=== PATIENT | male | born 1990 | race Caucasian/White ===

== ENCOUNTER 2020-02-18 13:21 | Emergency (ER) | payer MEDICAID, SELFPAY ==
[2020-02-18 13:30] VITALS: BP 155/97; PULSE 71; TEMP 37.1; O2SAT 98
--- NOTE | 2020-02-18 13:38 | W.ED.GENAD ---
Discharge Plan Disposition Patient Disposition: HOME Condition: Stable Discharge Details Chief Complaint: DentalOral Clinical Impression: Pain, dental Primary Care Provider: Luci De La O ED Provider: Angie Murrell Home Meds and New Rx's Prescriptions: New clindamycin HCl 300 mg capsule 300 mg PO BID 7 Days Qty: 14 RF: 0 No Action dextroamphetamine-amphetamine [Adderall XR] 10 MG capsule,extended release 24hr 10 mg PO DAILY Qty: 30 RF: 0 dextroamphetamine-amphetamine [Adderall XR] 30 MG capsule,extended release 24hr 30 mg PO DAILY Qty: 30 RF: 0 Discharge Instructions Instructions: Toothache (ED) Additional Instructions: Please follow-up with a dentist. Take antibiotics as prescribed. Please take Tylenol or Ibuprofen with food every 4-6 hours as needed for pain and swelling. Follow up with primary care provider in 3-5 days. Return to ED sooner if any worsening or concerns. Increase oral fluids. Referrals: Luci De La O, REGULATORY COMPLIANCE MANAGER [Primary Care Provider] - Medical Decision Making 30-year-old male presents to the ER with right upper dental tenderness. Pain began yesterday describes as worsening. Patient states he broke his upper right tooth approximately 1 year ago. Sharp shooting pain up into his right cheek and some mild swelling. Upon initial exam he has broken #4 incisor, no surrounding abscess or drainage noted. Speaking in full sentences denies any ear pain or throat pain no fever or chills. No other complaints. At this time there is no evidence for abscess or area of fluctuance which needs an incision and drainage. Offered patient dental block which he declined at this time. He is more concerned about potential for infection. So we will give clindamycin here in department prior to discharge and prescription for clindamycin twice daily x7 days. Patient was given emergency dental clinics which are operating room during the COVID pandemic and instructed to follow-up. Patient verbalized understanding. HPI General Mode of arrival: ambulatory. Date/Time Provider Initiated Documentation: 02/18/20 13:37. Limitations to Documentation: no limitations. Information obtained by: patient. HPI Narrative: 30-year-old male presents to the ER with right upper dental tenderness. Pain began yesterday describes as worsening. Patient states he broke his upper right tooth approximately 1 year ago. Sharp shooting pain up into his right cheek and some mild swelling. Upon initial exam he has broken #4 incisor, no surrounding abscess or drainage noted. Speaking in full sentences denies any ear pain or throat pain no fever or chills. No other complaints. Related Data Home Medications Medication Instructions Recorded Confirmed dextroamphetamine-amphetamine 10 mg PO DAILY #30 tab-cap 09/22/17 [Adderall Xr 10mg Capsule Sa] dextroamphetamine-amphetamine 30 mg PO DAILY #30 tab-cap 09/22/17 [Adderall Xr 30 Mg Capsule] clindamycin HCl 300 mg PO BID 7 Days #14 cap 02/18/20 Previous Rx's Medication Instructions Recorded dextroamphetamine-amphetamine 10 mg PO DAILY #30 tab-cap 09/22/17 [Adderall Xr 10mg Capsule Sa] dextroamphetamine-amphetamine 30 mg PO DAILY #30 tab-cap 09/22/17 [Adderall Xr 30 Mg Capsule] clindamycin HCl 300 mg PO BID 7 Days #14 cap 02/18/20 Allergies Allergy/AdvReac Type Severity Reaction Status Date / Time No Known Allergies Allergy Unverified 07/09/17 12:58 General Stated Complaint: DentalOral ELTON: 4 Review of Systems All systems reviewed & are unremarkable except as noted in HPI and below Constitutional Constitutional: Denies body ache(s), Denies chills, Denies fever(s) and Denies headache(s) ENT Ears, Nose, Mouth, and Throat: Denies halitosis, Denies change in voice, Reports dental pain, Denies dysphagia, Denies otalgia, Reports facial pain (Right cheek), Denies headache(s), Denies nasal congestion, Denies neck pain, Denies sinus pressure and Denies sore throat Gastrointestinal Gastrointestinal: Denies dysphagia Musculoskeletal Musculoskeletal: Denies neck pain Neurologic Neurologic: Denies headache(s) [facility] Family History Mother Heart disease Father Essential hypertension Sister No problems noted. Brother No problems noted. Social History Smoking/Tobacco Use Status: Never Alcohol Intake: current Alcohol Intake frequency: 0-2 drinks per day Drug use: Daily Substance use type: marijuana Do you feel safe at home: Yes Do you feel safe in your relationship?: Yes Exam HENSC Head: normal to inspection Ears: external ears normal and TM's normal bilaterally General nose exam: external nose normal Face and sinus: normal facial exam and sinus tenderness (Right maxillary) maxillary Mouth: oral mucosae normal Teeth and gingiva: abnormal tooth or associated gingiva upper right second bicuspid tender, enamel fractured and dentin fractured; without associated gingival fluctuance and pulp not exposed and caries Course Vital Signs Vital signs: Vital Signs Temperature 37.1 C 02/18/20 13:30 Pulse 71 02/18/20 13:30 Blood Pressure 155/97 H 02/18/20 13:30 Pulse Oximetry 98 02/18/20 13:30 Temperature 37.1 C 02/18/20 13:30 Temperature Source Skin 02/18/20 13:30 Pulse 71 02/18/20 13:30 Respiratory Effort Non-Labored 02/18/20 13:32 Blood Pressure 155/97 H 02/18/20 13:30 Blood Pressure Position Sitting 02/18/20 13:30 Pulse Oximetry 98 02/18/20 13:30 Oxygen Delivery Method Room Air 02/18/20 13:30 Oxygen Flow Rate 0 02/18/20 13:30
[2020-02-18] MEDS: Clindamycin 150 MG CAP 300 MG PO (13:47)
[2020-02-18] MEDS: Benzocaine 20% Gel 30 GM JAR MM (13:47)
== END 2020-02-18 13:56 | disposition home or self-care (01) ==
PROVIDERS: Emergency Provider Registered Nurse Emergency
DX: R68.84 Jaw pain (principal); K08.89 Other specified disorders of teeth and supporting structures
CPT/HCPCS: 99283

== ENCOUNTER 2021-11-29 02:24 | Outpatient (CLI) | payer OTHER, SELFPAY | END 2021-11-29 02:25 | disposition home or self-care (01) | LOC: LBO 02:25 | PROVIDERS: PCP Nurse Practitioner; Visit Provider Nurse Practitioner ==

== ENCOUNTER 2021-12-06 19:47 | Outpatient (REF) | payer OTHER, MEDICAID, SELFPAY ==
[2021-12-06 20:07] LABS: Calculated LDL 164 mg/dL (<100); Cholesterol 234 mg/dL (<200); HDL Cholesterol 41 mg/dL (40-60); Hemoglobin A1C 5.3 % (<5.7); Triglyceride 149 mg/dL (<150)
== END 2021-12-06 19:48 | disposition home or self-care (01) ==
LOC: LBN 19:47
PROVIDERS: PCP Nurse Practitioner; Visit Provider Nurse Practitioner
DX: Z13.1 Encounter for screening for diabetes mellitus (principal); Z13.6 Encounter for screening for cardiovascular disorders
CPT/HCPCS: 80061; 83036

== ENCOUNTER 2023-06-02 09:25 | Outpatient (CLI) | payer OTHER, SELFPAY ==
[2023-06-02 12:16] LABS: HCT 49.2 % (40.0-50.0); HGB 16.7 g/dL (13.5-17.5); MCH 28.9 pg (27.0-33.0); MCHC 33.9 % (32.0-36.0); MCV 85 fL (80-95); MPV 10.9 fL (8.0-11.0); Platelet Count 253 10^3/uL (130-400); RBC 5.78 10^6/uL (4.36-5.78); RDW 12.6 % (11.8-14.1); RDW-SD 38.7 fL; WBC 6.46 10^3/uL (4.4-10.8)
[2023-06-02 13:14] LABS: Anion Gap 8.2 mmol/L (3-11); BUN 16 mg/dL (7-18); CO2 28.8 mmol/L (21.0-32.0); Calcium 10.1 mg/dL (8.5-10.1); Calculated LDL 123 mg/dL (<100); Chloride 104 mmol/L (98-107); Cholesterol 219 mg/dL (<200); Estimated GFR 102.55 (mL/min/1.73m2); Glucose 101 mg/dL (74-106); HDL Cholesterol 41 mg/dL (40-60); Potassium 4.1 mmol/L (3.5-5.1); Sodium 141 mmol/L (136-145); TSH (W/Ref FT4) 1.28 uIU/mL (0.36-3.74); Triglyceride 276 mg/dL (<150)
[2023-06-02 13:49] LABS: Hemoglobin A1C 5.3 % (<5.7)
[2023-06-05 09:50] LABS: Testosterone, Total 313 ng/dL (240-950)
== END 2023-06-02 09:26 | disposition home or self-care (01) ==
LOC: LOS 09:25
PROVIDERS: PCP Nurse Practitioner Family; Referring Provider Nurse Practitioner Family; Visit Provider Nurse Practitioner Family
DX: E66.9 Obesity, unspecified (principal); E78.5 Hyperlipidemia, unspecified; F41.8 Other specified anxiety disorders; I10 Essential (primary) hypertension; Z00.00 Encounter for general adult medical examination without abnormal findings
CPT/HCPCS: 36415; 80048; 80061; 84403; 85027; 83036; 84443

== ENCOUNTER 2024-09-30 20:26 | Emergency (ER) | payer OTHER, SELFPAY ==
--- NOTE | 2024-09-30 20:30 | ED.GENADUL_ITS ---
Discharge Plan Disposition Patient Disposition: Home Discharge Details Clinical Impression: Allergic reaction Primary Care Provider: Rossana Rosa ED Provider: Santy Bowden Home Meds and New Rx's Prescriptions: Continued aspirin [Adult Aspirin Regimen] 81 mg tablet,delayed release (DR/EC) 81 mg PO DAILY lisdexamfetamine [Vyvanse] 20 mg capsule 20 mg PO QAM MDD 20 mg Qty: 28 0RF epinephrine [EpiPen 2-Hossein] 0.3 mg/0.3 mL auto-injector 0.3 mg IM ONCE Qty: 2 2RF Rx Instructions: as a single dose; may repeat once fluoxetine 40 mg capsule 40 mg PO DAILY Qty: 90 1RF Discharge Instructions Instructions: Allergic Reaction ED Additional Instructions: You are seen in the emergency department for your allergic reaction. As we discussed if develop shortness of breath or any difficulty breathing please use your epinephrine. If you use your epinephrine please return to the emergency department. Otherwise please follow-up with your primary care provider as needed. HPI General Date/Time Provider Initiated Documentation: 09/30/24 20:30 . HPI Narrative: MDM This is an overall very well-appearing normothermic and not tachycardic 34-year-old male with mild allergic reaction but no signs of anaphylaxis so no indication for epinephrine. I did provide patient with famotidine and dexamethasone. No pain or proportion to suggest necrotizing soft tissue infection. No fevers or cough to suggest pneumonia. Patient and I discussed that he return to the emergency department if you develop shortness of breath any rash tongue swelling or begin vomiting. He understood his return indications and was discharged with empiric trial of expectant outpatient management. HPI This is a 34-year-old male with a history of tree nut allergies run in the emergency department via private vehicle after eating some [place] food. He felt that he was having allergic reaction. He did not use his EpiPen. He did have some facial swelling and mild rash. Feels that his throat has sandpaper in her. No difficulty breathing swallowing or speaking. No diarrhea or abdominal pain. Symptoms occurred approximately 45 minutes prior to arrival. Exam General: Well-appearing in no acute distress speaking in complete sentences. Head: Normocephalic, atraumatic. Eye: Extraocular eye movements intact. No conjunctival injection. No scleral icterus. Ear, nose, mouth, throat: Mild facial swelling. No rash. No petechiae. Normal voice, handling secretions normally. Uvula midline. No tongue swelling. No significant oropharynx erythema. Neck: Trachea midline. Cardiovascular: Well-perfused distal extremities. Respiratory: Nonlabored respiration. Clear lungs bilaterally. No wheezes. Gastrointestinal: Nondistended abdomen. Soft nontender. Musculoskeletal: No edema. Moving all 4 extremities spontaneously. Skin: Normal for age and race, grossly normal temperature and turgor. No acute rash. Neurologic: Alert and appropriate, no apparent acute deficits. Psychiatric: Mood and manner are appropriate. Grooming and personal hygiene are appropriate. Related Data Home Medications ?Medication ?Instructions ?Recorded ?Confirmed aspirin 81 mg tablet,delayed 81 mg PO DAILY 12/06/21 02/22/24 release (Adult Aspirin Regimen) fluoxetine 40 mg capsule 40 mg PO DAILY #90 caps 12/07/23 02/22/24 epinephrine 0.3 mg/0.3 mL 0.3 mg (0.3 mL) IM ONCE #2 ea 02/22/24 02/22/24 injection, auto-injector (EpiPen 2-Hossein) lisdexamfetamine 20 mg capsule 20 mg PO QAM #28 caps 02/22/24 02/22/24 (Vyvanse) Previous Rx's ?Medication ?Instructions ?Recorded fluoxetine 40 mg capsule 40 mg PO DAILY #90 caps 12/07/23 epinephrine 0.3 mg/0.3 mL 0.3 mg (0.3 mL) IM ONCE #2 ea 02/22/24 injection, auto-injector (EpiPen 2-Hossein) lisdexamfetamine 20 mg capsule 20 mg PO QAM #28 caps 02/22/24 (Vyvanse) Allergies Allergy/AdvReac Type Severity Reaction Status Date / Time tree nuts AdvReac Severe Swelling/Ed Uncoded 02/22/24 16:12 evin General ELTON: 4 Medical Decision Making Quality:SDOH Health Related Social Needs: No Data to Display PFSH All Active Problems (Updated 09/30/24 @ 21:49 by Santy Bowden MD) Allergic reaction (Acute) ADHD (attention deficit hyperactivity disorder), predominantly hyperactive impulsive type (Acute 10/17/15) 01/01/16-CONTROLLED SUBSTANCE AGREEMENT GERD (gastroesophageal reflux disease) (Chronic) Hypertension (Chronic) Depression with anxiety (Acute 10/17/15) Hyperlipidemia (Acute) Snoring (Acute) Panic (Acute) Obesity (Chronic) Medical History (Updated 09/30/24 @ 21:49 by Santy Bowden MD) Retractile testis (09/02/16) 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 Brother No problems noted. 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[employer] Pets and animals: Yes Pets and animals: cat(s) and dog(s) Sexually active: Yes Do you think of yourself as: straight/heterosexual What is your relationship status?: never How often do you talk on the phone with friends or family?: three or more times per week How often do you get together with friends or relatives?: once per week How often do you attend quaker or judaism services?: decline to answer Do you belong to any clubs or organized social groups?: no Panel score (0-1 are the most socially isolated patients): 1 What type of physical activity do you participate in: other Details: Work Cassia/Islam: None Agree to transfusion: Yes Seatbelt use: always Helmet use: Yes Helmet use: sometimes Drive intox or ride w/intox bobtail driver: No Working smoke detector in home: Yes Firearms in home: Yes Do you feel safe at home: Yes Do you feel safe in your relationship?: Yes Victim of physical abuse: No Victim of emotional abuse: No Victim of sexual abuse: No Would you like helpful sources: No
[2024-09-30 20:33] VITALS: BP 146/84; PULSE 83; RESP 16; TEMP 37.1; O2SAT 96
[2024-09-30] MEDS: Dexamethasone 4 MG TAB 10 MG PO (20:43)
[2024-09-30] MEDS: Famotidine 20 MG TAB 40 MG PO (20:43)
[2024-09-30 21:35] VITALS: BP 143/72; PULSE 74; RESP 20; TEMP 36.9; O2SAT 96
[2024-09-30 22:00] VITALS: BP 143/72; PULSE 74; RESP 20; TEMP 36.9; O2SAT 96
== END 2024-09-30 22:01 | disposition home or self-care (01) ==
PROVIDERS: Emergency Provider Emergency Medicine; PCP Nurse Practitioner Family
DX: T78.1XXA Other adverse food reactions, not elsewhere classified, initial encounter (principal); R21 Rash and other nonspecific skin eruption; R22.0 Localized swelling, mass and lump, head; I10 Essential (primary) hypertension; E78.5 Hyperlipidemia, unspecified; Z79.82 Long term (current) use of aspirin; Z91.018 Allergy to other foods
CPT/HCPCS: 99283; J8540

== ENCOUNTER 2025-07-10 11:51 | Outpatient (CLI) | payer BC, SELFPAY ==
[2025-07-10 16:16] LABS: Hemoglobin A1C 5.1 % (<5.7)
[2025-07-10 16:20] LABS: ALT 44 U/L (10-49); AST 28 U/L (<34); Albumin 4.4 g/dL (3.4-5.0); Alkaline Phosphatase 65 U/L (46-116); Anion Gap 9 mmol/L (3-11); BUN 14 mg/dL (9-23); Bilirubin, Total 0.30 mg/dL (0.2-1.2); CO2 26.0 mmol/L (20.0-31.0); Calcium 9.4 mg/dL (8.3-10.6); Chloride 106 mmol/L (98-107); Cholesterol 182 mg/dL (<200); Glucose 110 mg/dL (74-106); HDL Cholesterol 46 mg/dL (>40); Potassium 4.1 mmol/L (3.5-5.1); Sodium 141 mmol/L (136-145); Total Protein 7.8 g/dL (5.7-8.2)
== END 2025-07-10 11:52 | disposition home or self-care (01) ==
LOC: LOS 11:52
PROVIDERS: PCP Nurse Practitioner Family; Visit Provider Nurse Practitioner Family
DX: Z00.00 Encounter for general adult medical examination without abnormal findings (principal); I10 Essential (primary) hypertension; E78.5 Hyperlipidemia, unspecified; E66.9 Obesity, unspecified; F90.1 Attention-deficit hyperactivity disorder, predominantly hyperactive type
CPT/HCPCS: 36415; 80053; 80061; 83036